=== PATIENT | male | born 1985 | race Caucasian/White ===

== ENCOUNTER 2018-07-06 10:28 | Emergency (ER) | payer OTHER ==
[2018-07-06] MEDS ORDERED: CLINDAMYCIN 600MG/D5W 600 MG/50 ML BAG IV ONE (11:17)
[2018-07-06] MEDS ORDERED: NA CHLORIDE 0.9% 1,000 ML ONE (11:17)
[2018-07-06 11:41] LABS: Absolute Lymphocytes (CBC) 0.8 K/uL (0.7-4.9); Absolute Monocytes 0.8 K/uL (0.1-1.3); Absolute Neutrophil 8.6 K/uL (1.8-8.0); Basophils % 0.2 % (0-1.3); Hematocrit 41.6 % (39.6-49.0); Lymphocytes % 7.4 % (15.3-44.8); MPV 8.3 fL (7.6-11.3); Monocytes % 7.5 % (3.3-12.3); RBC Red Blood Cell Count 4.87 M/uL (4.33-5.43)
--- NOTE | 2018-07-06 11:51 | RAD REPORT ---
EXAM DESCRIPTION: US - Extremity Venous Uni Ltd - 07/06/2018 11:45 am CLINICAL HISTORY: SWELLING Leg swelling and edema. COMPARISON: No comparisons FINDINGS: Right lower extremity venous system was interrogated with Doppler technique. Normal flow, compressibility and augmentation was noted. There is no DVT present. IMPRESSION: No evidence of right lower extremity deep venous thrombosis.
[2018-07-06 11:53] LABS: BUN Blood Urea Nitrogen 14 mg/dL (7-18); Bicarbonate 28 mmol/L (21-32); Glucose Level 112 mg/dL (74-106); Potassium 3.8 mmol/L (3.5-5.1); Sodium Level 140 mmol/L (136-145)
--- NOTE | 2018-07-06 12:33 | EDPHYS ---
Physician Documentation [facility] – [place], [place] Name: Jose Maria Agosto Age: 33 yrs Sex: Male : 1985 Arrival Date: 07/06/2018 Time: 10:30 Bed 13 Private MD: ED Physician Eric Condon HPI: 07/06 11:36 This 33 yrs old Male presents to ER via Ambulatory with complaints of Leg kb Swelling. 11:36 the patient presents with a swollen area of the right aragon and right knee. Description: kb erythematous, swollen, warm. Onset: The symptoms/episode began/occurred 4 day(s) ago. Possible cause(s): unknown. Associated signs and symptoms: Pertinent positives: erythema, swelling, Pertinent negatives: discharge, drainage, foreign body sensation, fever, headache, nausea, shortness of breath, vomiting. Modifying factors: the symptoms are alleviated by nothing, the symptoms are aggravated by touching. Severity of symptoms: At their worst the symptoms were moderate, in the emergency department the symptoms are unchanged. The patient has not experienced similar symptoms in the past. The patient has not recently seen a physician. Historical: - Allergies: 10:42 No Known Allergies; sv - PMHx: 10:42 Hypertension; sv - PSHx: 10:42 ACL, MCL, LCL repair right knee; sv - Immunization history:: Adult Immunizations up to date. - Social history:: Smoking status: Patient uses tobacco products, chewing tobacco. - Ebola Screening: : No symptoms or risks identified at this time. ROS: 11:35 Cardiovascular: Negative for chest pain, palpitations, and edema, Respiratory: Negative kb for shortness of breath, cough, wheezing, and pleuritic chest pain, Abdomen/GI: Negative for abdominal pain, nausea, vomiting, diarrhea, and constipation, Back: Negative for injury and pain, MS/Extremity: Negative for injury and deformity, Neuro: Negative for headache, weakness, numbness, tingling, and seizure. 11:35 Constitutional: Positive for fever, Negative for body aches, chills, fatigue, malaise, poor PO intake, weight loss. 11:35 Skin: Positive for erythema, swelling, of the right aragon and right knee. Exam: 11:35 Constitutional: This is a well developed, well nourished patient who is awake, alert, kb and in no acute distress. Head/Face: Normocephalic, atraumatic. ENT: Nares patent. No nasal discharge, no septal abnormalities noted. Tympanic membranes are normal and external auditory canals are clear. Oropharynx with no redness, swelling, or masses, exudates, or evidence of obstruction, uvula midline. Mucous membranes moist. Neck: Trachea midline, no thyromegaly or masses palpated, and no cervical lymphadenopathy. Supple, full range of motion without nuchal rigidity, or vertebral point tenderness. No Meningismus. Chest/axilla: Normal chest wall appearance and motion. Nontender with no deformity. No lesions are appreciated. Cardiovascular: Regular rate and rhythm with a normal S1 and S2. No gallops, murmurs, or rubs. Normal PMI, no JVD. No pulse deficits. Respiratory: Lungs have equal breath sounds bilaterally, clear to auscultation and percussion. No rales, rhonchi or wheezes noted. No increased work of breathing, no retractions or nasal flaring. Abdomen/GI: Soft, non-tender, with normal bowel sounds. No distension or tympany. No guarding or rebound. No evidence of tenderness throughout. MS/ Extremity: Pulses equal, no cyanosis. Neurovascular intact. Full, normal range of motion. Neuro: Awake and alert, GCS 15, oriented to person, place, time, and situation. Cranial nerves II-XII grossly intact. Motor strength 5/5 in all extremities. Sensory grossly intact. Cerebellar exam normal. Normal gait. 11:35 Skin: cellulitis, that is moderate, on the right knee and right aragon. Vital Signs: 10:42 BP 151 / 92; Pulse 94; Resp 18; Temp 98.5; Pulse Ox 100% ; Weight 104.33 kg; Height 5 sv ft. 11 in. (180.34 cm); Pain 7/10; 12:00 BP 137 / 89; Pulse 91; Resp 18; Pulse Ox 99% on R/A; ph 12:59 BP 143 / 81; Pulse 88; Resp 18; Temp 98.2; Pulse Ox 99% on R/A; ph 10:42 Body Mass Index 32.08 (104.33 kg, 180.34 cm) sv MDM: 10:32 Patient medically screened. kb 11:35 Data reviewed: vital signs, nurses notes. Data interpreted: Pulse oximetry: on room air kb is 100 %. Interpretation: normal. 11:36 ED course: Full ROM of knee, no joint involvement. kb 12:18 Counseling: I had a detailed discussion with the patient and/or guardian regarding: the kb historical points, exam findings, and any diagnostic results supporting the discharge/admit diagnosis, lab results, radiology results, the need for outpatient follow up, a family practitioner, to return to the emergency department if symptoms worsen or persist or if there are any questions or concerns that arise at home. 07/06 10:47 Order name: CBC with Diff; Complete Time: 11:42 kb 07/06 10:47 Order name: Basic Metabolic Panel; Complete Time: 11:54 kb 07/06 10:47 Order name: Blood Culture Adult (2) kb 07/06 10:47 Order name: Lactate; Complete Time: 11:46 kb 07/06 10:47 Order name: Procalcitonin; Complete Time: 12:32 kb 07/06 10:48 Order name: US Extremity Venous Unilateral Ltd; Complete Time: 11:54 kb 07/06 10:47 Order name: IV Start; Complete Time: 11:19 kb Administered Medications: 11:56 Drug: NS 0.9% 1000 ml Route: IV; Rate: 1000 ml; Site: right antecubital; ph 12:58 Follow up: Response: No adverse reaction; IV Status: Completed infusion ph 11:56 Drug: Clindamycin 600 mg Route: IVPB; Infused Over: 30 mins; Site: right antecubital; ph 12:30 Follow up: Response: No adverse reaction; IV Status: Completed infusion ph Disposition: 15:11 Co-signature as Attending Physician, Eric Condon MD. rn Disposition: 07/06/18 12:33 Discharged to Home. Impression: Cellulitis of right lower limb. - Condition is Stable. - Discharge Instructions: Cellulitis, Adult, [id number]. - Prescriptions for Clindamycin HCl 300 mg Oral Capsule - take 1 capsule by ORAL route every 6 hours for 10 days; 40 capsule. - Medication Reconciliation Form, Thank You Letter, Antibiotic Education, Prescription Opioid Use, Work release form form. - Follow up: Emergency Department; When: As needed; Reason: Worsening of condition. Follow up: Private Physician; When: 2 - 3 days; Reason: Recheck today's complaints, Continuance of care, Re-evaluation by your physician. Signatures: Dispatcher [employer] ED Nurys Terrell, BLUEPRINT TRIMMER-C BLUEPRINT TRIMMER-Ckb Denice Soto, RN RN Eric Thakkar MD MD rn Hall, Patricia RN RN ph Corrections: (The following items were deleted from the chart) 11:36 11:36 ED course: Full ROM of knee. kb kb 13:01 12:33 07/06/2018 12:33 Discharged to Home. Impression: Cellulitis of right lower limb. ph Condition is Stable. Discharge Instructions: Cellulitis, Adult, [id number]. Prescriptions for Clindamycin HCl 300 mg Oral Capsule - take 1 capsule by ORAL route every 6 hours for 10 days; 40 capsule. and Forms are Medication Reconciliation Form, Thank You Letter, Antibiotic Education, Prescription Opioid Use. Follow up: Emergency Department; When: As needed; Reason: Worsening of condition. Follow up: Private Physician; When: 2 - 3 days; Reason: Recheck today's complaints, Continuance of care, Re-evaluation by your physician. kb
--- NOTE | 2018-07-06 12:33 | ER ---
Nurse's Notes [facility] [place] Name: Jose Maria Agosto Age: 33 yrs Sex: Male : 1985 Arrival Date: 07/06/2018 Time: 10:30 Bed 13 Private MD: Diagnosis: Cellulitis of right lower limb Presentation: 07/06 10:40 Presenting complaint: Patient states: right knee and calf swelling x 4 days, denies sv injury. Transition of care: patient was not received from another setting of care. Onset of symptoms was July 02, 2018. Risk Assessment: Do you want to hurt yourself or someone else? Patient reports no desire to harm self or others. Initial Sepsis Screen: Does the patient meet any 2 criteria? No. Patient's initial sepsis screen is negative. Does the patient have a suspected source of infection? No. Patient's initial sepsis screen is negative. Care prior to arrival: None. 10:40 Method Of Arrival: Ambulatory sv 10:40 Acuity: EULALIO 3 sv Triage Assessment: 10:40 General: Appears in no apparent distress. uncomfortable, well developed, Behavior is sv calm, cooperative, appropriate for age. Pain: Complains of pain in right leg. Neuro: Level of Consciousness is awake, alert, obeys commands, Oriented to person, place, time, situation, Gait is steady. Respiratory: Respiratory effort is even, unlabored, Respiratory pattern is regular, symmetrical. Historical: - Allergies: 10:42 No Known Allergies; sv - PMHx: 10:42 Hypertension; sv - PSHx: 10:42 ACL, MCL, LCL repair right knee; sv - Immunization history:: Adult Immunizations up to date. - Social history:: Smoking status: Patient uses tobacco products, chewing tobacco. - Ebola Screening: : No symptoms or risks identified at this time. Screenin:38 Abuse screen: Denies threats or abuse. Denies injuries from another. Nutritional ph screening: No deficits noted. Tuberculosis screening: No symptoms or risk factors identified. Fall Risk None identified. Assessment: 10:40 General: Appears in no apparent distress. comfortable, well groomed, Behavior is calm, ph cooperative, appropriate for age, Reports fever for 1-2 days. Pain: Complains of pain in right leg. Neuro: Level of Consciousness is awake, alert, obeys commands, Oriented to person, place, time, situation. Cardiovascular: Capillary refill < 3 seconds in bilateral fingers Patient's skin is warm and dry. Respiratory: Airway is patent Respiratory effort is even, unlabored, Respiratory pattern is regular, symmetrical, Denies shortness of breath. GI: Patient currently denies diarrhea, nausea, vomiting. Derm: Skin is intact, Skin is pink, warm \T\ dry. Musculoskeletal: Circulation, motion, and sensation intact. Swelling present in right aragon and right knee. 12:59 Reassessment: Patient appears in no apparent distress at this time. Patient and/or ph family updated on plan of care and expected duration. Pain level reassessed. Patient is alert, oriented x 3, equal unlabored respirations, skin warm/dry/pink. Pt d/c home. Vital Signs: 10:42 BP 151 / 92; Pulse 94; Resp 18; Temp 98.5; Pulse Ox 100% ; Weight 104.33 kg; Height 5 sv ft. 11 in. (180.34 cm); Pain 7/10; 12:00 BP 137 / 89; Pulse 91; Resp 18; Pulse Ox 99% on R/A; ph 12:59 BP 143 / 81; Pulse 88; Resp 18; Temp 98.2; Pulse Ox 99% on R/A; ph 10:42 Body Mass Index 32.08 (104.33 kg, 180.34 cm) sv ED Course: 10:30 Patient arrived in ED. rg4 10:32 Nurys Terrell FNP-C [facility]. kb 10:32 Eric Condon MD is Attending Physician. kb 10:41 Triage completed. sv 10:43 Arm band placed on. sv 11:00 Initial lab(s) drawn, by me, sent to lab. First set of blood cultures drawn by me. ms Inserted saline lock: 20 gauge in right antecubital area, using aseptic technique. Blood collected. 11:02 Yajaira Wang, NELL is Primary Nurse. ph 11:15 Second set of blood cultures drawn. ms 11:15 Initial lab(s) drawn, by me, sent to lab. ms 11:38 Patient has correct armband on for positive identification. Placed in gown. Bed in low ph position. Call light in reach. Side rails up X 1. Pulse ox on. NIBP on. Door closed. Noise minimized. Warm blanket given. 11:45 Extremity Venous Unilateral Ltd In Process Unspecified. EDMS 13:00 No provider procedures requiring assistance completed. IV discontinued, intact, ph bleeding controlled, No redness/swelling at site. Pressure dressing applied. Administered Medications: 11:56 Drug: NS 0.9% 1000 ml Route: IV; Rate: 1000 ml; Site: right antecubital; ph 12:58 Follow up: Response: No adverse reaction; IV Status: Completed infusion ph 11:56 Drug: Clindamycin 600 mg Route: IVPB; Infused Over: 30 mins; Site: right antecubital; ph 12:30 Follow up: Response: No adverse reaction; IV Status: Completed infusion ph Outcome: 12:33 Discharge ordered by . eliezer 13:00 Discharged to home ambulatory. ph 13:00 Condition: good 13:00 Discharge instructions given to patient, Instructed on discharge instructions, follow up and referral plans. medication usage, Demonstrated understanding of instructions, follow-up care, medications, Prescriptions given X 1. 13:01 Patient left the ED. ph Signatures: Dispatcher [employer] EDTN Nurys Terrell, [place] CASH ANALYST-Denice Park, RN RN Neeru Espinal ms, Patricia, RN RN ph Garcia, Rubi rg4
== END 2018-07-06 13:01 | disposition home or self-care (01) ==
LOC: ER 10:28
DX: L03.115 Cellulitis of right lower limb (principal); I10 Essential (primary) hypertension; F17.220 Nicotine dependence, chewing tobacco, uncomplicated
CPT/HCPCS: 36415; 80048; 83605; 84145; 85025; 87040; 93971; 96365; 99284; J7030

== ENCOUNTER 2018-07-10 08:32 | Observation (INO) | payer OTHER, SELFPAY ==
[2018-07-10] MEDS ORDERED: VANCOMYCIN/NS 1 gm 1 GM/250 ML BAG IV ONE ×2 (09:00→21:00)
[2018-07-10] MEDS ORDERED: LISINOPRIL 20 MG TAB ONE (09:03)
[2018-07-10] MEDS ORDERED: PIPER/TAZO/NS 3.375gm 3.375 GM/100 ML BAG ONE (09:03)
[2018-07-10 09:21] LABS: Potassium 3.9 mmol/L (3.5-5.1)
[2018-07-10 09:25] LABS: Absolute Lymphocytes (CBC) 1.4 K/uL (0.7-4.9); Absolute Monocytes 0.6 K/uL (0.1-1.3); Absolute Neutrophil 5.9 K/uL (1.8-8.0); Basophils % 0.3 % (0-1.3); Eosinophils % 2.6 % (0-4.4); Hematocrit 42.9 % (39.6-49.0); Lymphocytes % 16.8 % (15.3-44.8); MPV 7.7 fL (7.6-11.3); Monocytes % 7.4 % (3.3-12.3); RBC Red Blood Cell Count 5.04 M/uL (4.33-5.43)
--- NOTE | 2018-07-10 09:54 | ER ---
Nurse's Notes [facility] Name: Jose Maria Agosto Age: 33 yrs Sex: Male : 1985 Arrival Date: 07/10/2018 Time: 08:34 Bed 5 Private MD: Diagnosis: Cellulitis of right lower limb-failed outpatient therapy Presentation: 07/10 08:43 Presenting complaint: Patient states: RLE swelling and redness has worsened, was seen sv here 07/06/18 and given abx. Transition of care: patient was not received from another setting of care. Onset of symptoms was July 06, 2018. Risk Assessment: Do you want to hurt yourself or someone else? Patient reports no desire to harm self or others. Initial Sepsis Screen: Does the patient meet any 2 criteria? No. Patient's initial sepsis screen is negative. Does the patient have a suspected source of infection? Yes: Skin breakdown/wound. Care prior to arrival: None. 08:43 Method Of Arrival: Ambulatory sv 08:43 Acuity: EULALIO 3 sv Triage Assessment: 08:43 General: Appears in no apparent distress. uncomfortable, well groomed, well developed, sv Behavior is calm, cooperative, appropriate for age. Pain: Complains of pain in right leg Pain currently is 5 out of 10 on a pain scale. Pain began 4 days ago Is continuous, Aggravated by increased activity, weight bearing. Neuro: Level of Consciousness is awake, alert, obeys commands, Oriented to person, place, time, situation, Moves all extremities. Full function Gait is steady, Speech is normal. Respiratory: Airway is patent Respiratory effort is even, unlabored, Respiratory pattern is regular, symmetrical. Derm: Skin is pink, warm \T\ dry. Redness noted to RLE. Musculoskeletal: Swelling present in right knee and right aragon. Historical: - Allergies: 08:45 No Known Allergies; sv - Home Meds: 08:45 lisinopril 40 mg Oral tab 1 tab once daily [Active]; sv - PMHx: 08:45 Hypertension; sv - PSHx: 08:45 ACL, MCL, LCL repair right knee; sv - Immunization history:: Adult Immunizations up to date. - Social history:: Smoking status: Patient uses tobacco products, chewing tobacco. - Ebola Screening: : No symptoms or risks identified at this time. Screenin:00 Abuse screen: Denies threats or abuse. Denies injuries from another. Nutritional sv screening: No deficits noted. Tuberculosis screening: No symptoms or risk factors identified. Fall Risk None identified. Assessment: 09:00 Reassessment: Patient appears in no apparent distress at this time. No changes from sv previously documented assessment. Patient and/or family updated on plan of care and expected duration. Pain level reassessed. Patient is alert, oriented x 3, equal unlabored respirations, skin warm/dry/pink. 10:33 Reassessment: Patient appears in no apparent distress at this time. No changes from sv previously documented assessment. Patient and/or family updated on plan of care and expected duration. Pain level reassessed. Patient is alert, oriented x 3, equal unlabored respirations, skin warm/dry/pink. 10:55 Reassessment: Patient appears in no apparent distress at this time. No changes from sv previously documented assessment. Patient and/or family updated on plan of care and expected duration. Pain level reassessed. Patient is alert, oriented x 3, equal unlabored respirations, skin warm/dry/pink. Vital Signs: 08:47 BP 155 / 96; Pulse 95; Resp 18; Temp 98.3; Pulse Ox 100% ; Weight 104.33 kg; Height 5 sv ft. 11 in. (180.34 cm); Pain 5/10; 09:40 BP 145 / 90; Pulse 98; Resp 18; Pulse Ox 100% on R/A; sv 10:32 BP 132 / 91; Pulse 93; Resp 18; Pulse Ox 97% ; sv 08:47 Body Mass Index 32.08 (104.33 kg, 180.34 cm) sv ED Course: 08:34 Patient arrived in ED. rg4 08:35 Nurys Terrell FNP-C is PHCP. kb 08:35 Soy Acuña MD is Attending Physician. kb 08:40 First set of blood cultures drawn by ED staff. sv 08:43 Denice Soto, NELL is Primary Nurse. sv 08:44 Triage completed. sv 08:45 Patient has correct armband on for positive identification. Placed in gown. Bed in low sv position. Call light in reach. Pulse ox on. NIBP on. Door closed. Head of bed elevated. 08:45 Initial lab(s) drawn, by me, sent to lab. Inserted saline lock: 20 gauge in right sg antecubital area, using aseptic technique. Blood collected. 08:47 Arm band placed on. sv 08:55 Second set of blood cultures drawn by ED staff. sv 09:01 Awaiting lab results. sv 09:53 Babak Teresa MD is Hospitalizing Provider. kb 10:55 No provider procedures requiring assistance completed. Patient admitted, IV remains in sv place. intact. Administered Medications: 08:58 Drug: Lisinopril 40 mg Route: PO; sv 09:40 Follow up: Response: No adverse reaction; Blood pressure is lowered sv 09:00 Drug: Zosyn 3.375 grams Route: IVPB; Infused Over: 60 mins; Site: right antecubital; sv 10:15 Follow up: Response: No adverse reaction; IV Status: Completed infusion; IV Intake: sv 100ml 10:31 Drug: vancoMYCIN 1 grams Route: IVPB; Infused Over: 2 hrs; Site: right antecubital; sv 11:20 Follow up: Response: No adverse reaction; IV Status: Infusion continued upon admission sv Intake: 10:15 IV: 100ml; Total: 100ml. sv Outcome: 09:53 Decision to Hospitalize by Provider. kb 10:55 Admitted to ER Hold. Please see [facility] for further documentation. sv 10:55 Condition: stable 10:55 Instructed on the need for admit. 11:20 Patient left the ED. sv Signatures: Nurys Terrell, [place] COMMUNITY DEVELOPMENT AIDE-Denice Park RN RN Neto Tatum RN RN sg Garcia, Rubi rg4
--- NOTE | 2018-07-10 09:54 | EDPHYS ---
Physician Documentation [facility] Name: Jose Maria Agosto Age: 33 yrs Sex: Male : 1985 Arrival Date: 07/10/2018 Time: 08:34 Bed 5 Private MD: ED Physician Soy Acuña HPI: 07/10 09:03 This 33 yrs old Male presents to ER via Ambulatory with complaints of Leg kb Swelling, Leg Pain. 09:03 The patient presents with cellulitis of the anterior aspect of right ankle and right kb aragon and right knee. Description: erythematous, hot, swollen. Onset: The symptoms/episode began/occurred last week. Possible cause(s): unknown. Associated signs and symptoms: Pertinent positives: erythema, swelling. Modifying factors: the symptoms are alleviated by nothing, the symptoms are aggravated by pressure. Severity of symptoms: At their worst the symptoms were moderate, in the emergency department the symptoms are unchanged. The patient has not experienced similar symptoms in the past. The patient has been recently seen at the [facility], last week, for similar complaints labs were performed, an ultrasound was performed, was given a prescription for antibiotics, told to return if symptoms worsened. Pt was seen on 07/06/18 by me for cellulitis of right lower extremity. labs and US done, put on clindamycin, and told to return for worsening symptoms. Pt reports increased redness, swelling, and pain. Denies fever. Someone was mailing his lisinopril when I saw him last, but it has yet to arrive. Will give regular dose now.. Historical: - Allergies: 08:45 No Known Allergies; sv - Home Meds: 08:45 lisinopril 40 mg Oral tab 1 tab once daily [Active]; sv - PMHx: 08:45 Hypertension; sv - PSHx: 08:45 ACL, MCL, LCL repair right knee; sv - Immunization history:: Adult Immunizations up to date. - Social history:: Smoking status: Patient uses tobacco products, chewing tobacco. - Ebola Screening: : No symptoms or risks identified at this time. ROS: 08:55 Constitutional: Negative for fever, chills, and weight loss, Cardiovascular: Negative kb for chest pain, palpitations, and edema, Respiratory: Negative for shortness of breath, cough, wheezing, and pleuritic chest pain, Abdomen/GI: Negative for abdominal pain, nausea, vomiting, diarrhea, and constipation, Back: Negative for injury and pain, MS/Extremity: Negative for injury and deformity, Neuro: Negative for headache, weakness, numbness, tingling, and seizure. 08:55 Skin: Positive for cellulitis, erythema, swelling, of the anterior aspect of right ankle and right aragon and right knee. Exam: 08:55 Constitutional: This is a well developed, well nourished patient who is awake, alert, kb and in no acute distress. Head/Face: Normocephalic, atraumatic. Chest/axilla: Normal chest wall appearance and motion. Nontender with no deformity. No lesions are appreciated. Cardiovascular: Regular rate and rhythm with a normal S1 and S2. No gallops, murmurs, or rubs. Normal PMI, no JVD. No pulse deficits. Respiratory: Lungs have equal breath sounds bilaterally, clear to auscultation and percussion. No rales, rhonchi or wheezes noted. No increased work of breathing, no retractions or nasal flaring. Abdomen/GI: Soft, non-tender, with normal bowel sounds. No distension or tympany. No guarding or rebound. No evidence of tenderness throughout. MS/ Extremity: Pulses equal, no cyanosis. Neurovascular intact. Full, normal range of motion. Neuro: Awake and alert, GCS 15, oriented to person, place, time, and situation. Cranial nerves II-XII grossly intact. Motor strength 5/5 in all extremities. Sensory grossly intact. Cerebellar exam normal. Normal gait. 08:55 Skin: cellulitis, that is moderate, on the right knee, right aragon and anterior aspect of right ankle. Vital Signs: 08:47 BP 155 / 96; Pulse 95; Resp 18; Temp 98.3; Pulse Ox 100% ; Weight 104.33 kg; Height 5 sv ft. 11 in. (180.34 cm); Pain 5/10; 09:40 BP 145 / 90; Pulse 98; Resp 18; Pulse Ox 100% on R/A; sv 10:32 BP 132 / 91; Pulse 93; Resp 18; Pulse Ox 97% ; sv 08:47 Body Mass Index 32.08 (104.33 kg, 180.34 cm) sv MDM: 08:37 Patient medically screened. kb 08:55 Data reviewed: vital signs, nurses notes. Data interpreted: Pulse oximetry: on room air kb is 100 %. Interpretation: normal. 09:51 Counseling: I had a detailed discussion with the patient and/or guardian regarding: the kb historical points, exam findings, and any diagnostic results supporting the discharge/admit diagnosis, lab results, the need for further work-up and treatment in the hospital. Physician consultation: Babak Teresa MD was contacted at 09:52, regarding admission, to the medical/surgical unit. and will see patient in ED, shortly. ED course: Pt to be admitted due to worsening symptoms and failed outpatient treatment. . 07/10 08:39 Order name: CBC with Diff; Complete Time: 09:33 kb 07/10 08:39 Order name: Basic Metabolic Panel; Complete Time: 09:33 kb 07/10 08:39 Order name: Procalcitonin; Complete Time: 09:47 kb 07/10 08:39 Order name: Lactate; Complete Time: 09:33 kb 07/10 08:39 Order name: Blood Culture Adult (2) kb 07/10 08:39 Order name: IV Start; Complete Time: 08:59 kb Administered Medications: 08:58 Drug: Lisinopril 40 mg Route: PO; sv 09:40 Follow up: Response: No adverse reaction; Blood pressure is lowered sv 09:00 Drug: Zosyn 3.375 grams Route: IVPB; Infused Over: 60 mins; Site: right antecubital; sv 10:15 Follow up: Response: No adverse reaction; IV Status: Completed infusion; IV Intake: sv 100ml 10:31 Drug: vancoMYCIN 1 grams Route: IVPB; Infused Over: 2 hrs; Site: right antecubital; sv 11:20 Follow up: Response: No adverse reaction; IV Status: Infusion continued upon admission sv Disposition: 07/11 08:13 Co-signature as Attending Physician, Soy Acuña MD I agree with the assessment and marilee plan of care. Disposition: 07/10/18 09:53 Hospitalization ordered by Babak Teresa for Inpatient Admission. Preliminary diagnosis is Cellulitis of right lower limb - failed outpatient therapy. - Bed requested for Telemetry/MedSurg (Inpatient). - Status is Inpatient Admission. sv - Condition is Stable. - Problem is an ongoing problem. - Symptoms have worsened. UTI on Admission? No Signatures: Dispatcher [employer] EDMS Nurys Terrell, DRY HOUSE OPERATOR-C DRY HOUSE OPERATOR-Ckb KaylieEricaAliciaDenice Naranjo, RN RN sv Soy Acuña MD MD cha Fitzgerald, Diane, NELL RN df Corrections: (The following items were deleted from the chart) 07/10 10:43 09:53 Hospitalization Ordered by Babak Teresa MD for Inpatient Admission. Preliminary bd diagnosis is Cellulitis of right lower limb - failed outpatient therapy. Bed requested for Telemetry/MedSurg (Inpatient). Status is Inpatient Admission. Condition is Stable. Problem is an ongoing problem. Symptoms have worsened. UTI on Admission? No. kb 10:59 10:43 07/10/2018 09:53 Hospitalization Ordered by Babak Teresa MD for Inpatient df Admission. Preliminary diagnosis is Cellulitis of right lower limb - failed outpatient therapy. Bed requested for [facility] ER HOLD. Status is Inpatient Admission. Condition is Stable. Problem is an ongoing problem. Symptoms have worsened. UTI on Admission? No. bd 11:20 10:59 07/10/2018 09:53 Hospitalization Ordered by Babak Teresa MD for Inpatient sv Admission. Preliminary diagnosis is Cellulitis of right lower limb - failed outpatient therapy. Bed requested for Telemetry/MedSurg (Inpatient). Status is Inpatient Admission. Condition is Stable. Problem is an ongoing problem. Symptoms have worsened. UTI on Admission? No. df
[2018-07-10] MEDS ORDERED: ACETAMINOPHEN 500 MG TAB PO PRN (10:48)
[2018-07-10] MEDS: TRAMADOL HCL 50 MG TAB PO PRN (17:37)
--- NOTE | 2018-07-10 18:37 | P.HP ---
Patient History Date of Service: 07/10/18 Reason for admission: Cellulitis History of Present Illness: This is a 33 yr old male with a hx of HTN admitted for right lower extremity cellulitis. Patient was seen in the ER on the 06 of july, was discharged with po clindamycin. He states that he has been taking it Q8 hrs and his redness, swelling and pain had worsened. Therefore he came to the ED. He denies any fevers, chills, cp, sob. Of note, patient states that he has had right knee surgery and does have some screws in there. He is also complaining of right knee pain. In the ED, he was HDS. His labs were unremarkable. He was given IV vancomycin and zosyn. At the time of my exam, he was AAOx3, in no acute distress and HDS. Allergies No Known Allergies Allergy (Verified 07/10/18 10:47) Home medications list reviewed: Yes Home Medications: Lisinopril 40 mg PO DAILY 07/10/18 - Past Medical/Surgical History Has patient received pneumonia vaccine in the past: No Diabetic: No -: HTN -: MCL, ACL, LCL repair on right knee - Family History Father -: Heart disease - Social History Smoking Status: Never smoker Alcohol use: Yes CD- Drugs: No Place of Residence: Home Review of Systems 10-point ROS is otherwise unremarkable Physical Examination - Vital Signs Temperature: 97.4 F Blood Pressure: 129/64 Pulse: 77 Respirations: 18 Pulse Ox (%): 98 - Physical Exam General: Alert, In no apparent distress, Oriented x3 HEENT: Atraumatic, PERRLA, Mucous membr. moist/pink, EOMI, Sclerae nonicteric Neck: Supple, 2+ carotid pulse no bruit, No LAD, Without JVD or thyroid abnormality Respiratory: Clear to auscultation bilaterally, Normal air movement Cardiovascular: Regular rate/rhythm, Normal S1 S2 Gastrointestinal: Normal bowel sounds, No tenderness Musculoskeletal: Erythema (Right knee), Tenderness (Right knee) Integumentary: Erythema, Warmth (Right Lower extremity, starting at knee, stopping right above ankle. Area demarcated. ) Neurological: Normal gait, Normal speech, Normal strength at 5/5 x4 extr, Normal tone, Normal affect Lymphatics: No axilla or inguinal lymphadenopathy - Studies Laboratory Data (last 24 hrs) 07/10/18 08:55: Triglycerides 97, Cholesterol 160, HDL Cholesterol 42, Cholesterol/HDL Ratio 3.81 07/10/18 08:55: Sodium 140, Potassium 3.9, BUN 15, Creatinine 1.06, Glucose 94 07/10/18 08:55: WBC 8.1 D, Hgb 14.2, Hct 42.9, Plt Count 300 D Assessment and Plan - Problems (Diagnosis) (1) Cellulitis Current Visit: Yes Status: Acute Plan: Start IV antibiotics, vancomycin and zosyn Demarcate area and monitor. Qualifiers: Site of cellulitis: extremity Site of cellulitis of extremity: lower extremity Laterality: right Qualified Code(s): L03.115 - Cellulitis of right lower limb (2) Hypertension Current Visit: No Status: Chronic Plan: Stable, restart home medications Qualifiers: Hypertension type: essential hypertension Qualified Code(s): I10 - Essential (primary) hypertension (3) H/O knee surgery Current Visit: Yes Status: Acute Plan: As patient is complaining of knee pain, we will go ahead and get a right knee x- ray. (4) Failure of outpatient treatment Current Visit: Yes Status: Acute - Plan DVT prophylaxis: Encourage ambulation GI prophylaxsis: None Diet: Heart healthy Admit to med/surg floor for IV antibiotics. Discharge Plan: Home - Advance Directives Does patient have a Living Will: No Does patient have a Durable POA for Healthcare: No Time Spent Managing Pts Care (In Minutes): 55
--- NOTE | 2018-07-10 19:42 | RAD REPORT ---
EXAM DESCRIPTION: RAD - Knee Right 2 View - 07/10/2018 7:35 pm CLINICAL HISTORY: Knee pain FINDINGS: Screw has been placed into tibia. Diffuse edema is present within the anterior subcutaneous tissues. No fracture or dislocation seen. No bony destructive lesion noted. There does not appear to be a large joint effusion present
[2018-07-10] MEDS ORDERED: NA CHLORIDE 0.9% 250 ML ONE (20:32)
[2018-07-10] MEDS: PIPER/TAZO/NS 3.375gm 3.375 GM/100 ML BAG IVPB SCH (20:57)
[2018-07-11] MEDS: PIPER/TAZO/NS 3.375gm 3.375 GM/100 ML BAG IVPB SCH ×3 (00:36→17:40)
[2018-07-11 06:05] LABS: Absolute Lymphocytes (CBC) 1.6 K/uL (0.7-4.9); Absolute Monocytes 0.8 K/uL (0.1-1.3); Absolute Neutrophil 5.3 K/uL (1.8-8.0); Basophils % 0.3 % (0-1.3); Eosinophils % 4.4 % (0-4.4); Hematocrit 38.2 % (39.6-49.0); Lymphocytes % 20.1 % (15.3-44.8); MPV 7.5 fL (7.6-11.3); Monocytes % 10.1 % (3.3-12.3); RBC Red Blood Cell Count 4.54 M/uL (4.33-5.43)
[2018-07-11 06:15] LABS: Magnesium 2.5 mg/dL (1.8-2.4); Phosphorus 3.4 mg/dL (2.5-4.9); Potassium 4.1 mmol/L (3.5-5.1)
[2018-07-11] MEDS: LISINOPRIL 20 MG TAB PO SCH (08:39)
[2018-07-11] MEDS: TRAMADOL HCL 50 MG TAB PO PRN (08:39)
[2018-07-11] MEDS: VANCOMYCIN 2 GM in NA CHLORIDE 0.9% 500 ML IVPB SCH ×2 (08:41→20:13)
--- NOTE | 2018-07-11 13:16 | P.PN ---
Subjective Date of Service: 07/11/18 Chief Complaint: Cellulitis Subjective: Improving Patient seen and examined at bedside. No family at bedside. Chart reviewed and case discussed with nursing staff. Reports improvement. Tolerating a diet with failure. Pain has improved. The redness slightly improved No acute events noted overnight Review of Systems 10-point ROS is otherwise unremarkable Physical Examination - Vital Signs Temperature: 99 F Blood Pressure: 124/68 Pulse: 73 Respirations: 20 Pulse Ox (%): 98 - Physical Exam General: Alert, In no apparent distress, Oriented x3 HEENT: Atraumatic, PERRLA, EOMI Neck: Supple, JVD not distended Respiratory: Clear to auscultation bilaterally, Normal air movement Cardiovascular: Regular rate/rhythm, Normal S1 S2 Gastrointestinal: Normal bowel sounds, No tenderness Musculoskeletal: No tenderness Integumentary: Tenderness/swelling, Erythema, Warmth (Improving) Neurological: Normal speech, Normal tone, Normal affect Lymphatics: No axilla or inguinal lymphadenopathy - Studies Laboratory Data (last 24 hrs) 07/10/18 08:55: Triglycerides 97, Cholesterol 160, HDL Cholesterol 42, Cholesterol/HDL Ratio 3.81 Assessment And Plan - Current Problems (Diagnosis) (1) Cellulitis Current Visit: Yes Status: Acute Plan: Continue IV antibiotics, vancomycin and zosyn Area of erythema continues to be inside demarcation. We will continue to monitor Qualifiers: Site of cellulitis: extremity Site of cellulitis of extremity: lower extremity Laterality: right Qualified Code(s): L03.115 - Cellulitis of right lower limb (2) Hypertension Current Visit: No Status: Chronic Plan: Stable, restart home medications Qualifiers: Hypertension type: essential hypertension Qualified Code(s): I10 - Essential (primary) hypertension (3) H/O knee surgery Current Visit: Yes Status: Acute Plan: Knee pain slightly improved. Knee x-ray negative for any acute abnormalities other than inflammation noted in the subcutaneous tissue. (4) Failure of outpatient treatment Current Visit: Yes Status: Acute - Plan DVT prophylaxis: Encourage ambulation GI prophylaxsis: None Diet: Heart healthy Continue to monitor on the floor, with IV antibiotics. Likely discharge home in the next 24-48 hr on oral antibiotics
[2018-07-11] MEDS ORDERED: NA CHLORIDE 0.9% 250 ML ONE (20:12)
[2018-07-12] MEDS: PIPER/TAZO/NS 3.375gm 3.375 GM/100 ML BAG IVPB SCH ×2 (00:10→08:39)
[2018-07-12 06:35] LABS: Absolute Lymphocytes (CBC) 1.3 K/uL (0.7-4.9); Absolute Monocytes 0.7 K/uL (0.1-1.3); Absolute Neutrophil 5.8 K/uL (1.8-8.0); Basophils % 0.4 % (0-1.3); Eosinophils % 4.1 % (0-4.4); Hematocrit 38.6 % (39.6-49.0); Lymphocytes % 15.8 % (15.3-44.8); MPV 7.3 fL (7.6-11.3); Monocytes % 8.7 % (3.3-12.3); RBC Red Blood Cell Count 4.59 M/uL (4.33-5.43)
[2018-07-12 06:41] LABS: BUN Blood Urea Nitrogen 9 mg/dL (7-18); Bicarbonate 28 mmol/L (21-32); Glucose Level 93 mg/dL (74-106); Potassium 4.1 mmol/L (3.5-5.1); Sodium Level 142 mmol/L (136-145)
[2018-07-12] MEDS: VANCOMYCIN 2 GM in NA CHLORIDE 0.9% 500 ML IVPB SCH (08:39)
[2018-07-12] MEDS: LISINOPRIL 20 MG TAB PO SCH (08:39)
--- NOTE | 2018-07-12 10:28 | P.SSS ---
Patient History Date of Service: 07/12/18 Primary Care Provider: In [place] Reason for admission: Cellulitis History of Present Illness: This is a 33 yr old male with a hx of HTN admitted for right lower extremity cellulitis. Patient was seen in the ER on the 06 of july, was discharged with po clindamycin. He states that he has been taking it Q8 hrs and his redness, swelling and pain had worsened. Therefore he came to the ED. He denies any fevers, chills, cp, sob. Of note, patient states that he has had right knee surgery and does have some screws in there. He is also complaining of right knee pain. In the ED, he was HDS. His labs were unremarkable. He was given IV vancomycin and zosyn. At the time of my exam, he was AAOx3, in no acute distress and HDS. Allergies No Known Allergies Allergy (Verified 07/10/18 10:47) Home Medications: Lisinopril 40 mg PO DAILY 07/10/18 Sulfamethoxazole/Trimethoprim [Bactrim Ds Tablet] 1 each PO BID #24 tablet 07/12 - Past Medical/Surgical History Has patient received pneumonia vaccine in the past: No Diabetic: No -: HTN -: MCL, ACL, LCL repair on right knee - Family History Father -: Heart disease - Social History Smoking Status: Never smoker Alcohol use: Yes CD- Drugs: No Place of Residence: Home Review of Systems 10-point ROS is otherwise unremarkable Physical Examination - Vital Signs Temperature: 97.1 F Blood Pressure: 144/77 Pulse: 80 Respirations: 20 Pulse Ox (%): 98 - Physical Exam General: Alert, In no apparent distress, Oriented x3 HEENT: Atraumatic, PERRLA, Mucous membr. moist/pink, EOMI, Sclerae nonicteric Neck: Supple, 2+ carotid pulse no bruit, No LAD, Without JVD or thyroid abnormality Respiratory: Clear to auscultation bilaterally, Normal air movement Cardiovascular: Regular rate/rhythm, Normal S1 S2 Gastrointestinal: Normal bowel sounds, No tenderness Musculoskeletal: Tenderness (Right knee, improved) Integumentary: Tenderness/swelling (Right knee, improved), Erythema (Right knee , improved) Neurological: Normal gait, Normal speech, Normal strength at 5/5 x4 extr, Normal tone, Normal affect Lymphatics: No axilla or inguinal lymphadenopathy - Diagnosis (Problem(s)) (1) Cellulitis Current Visit: Yes Status: Acute Qualifiers: Site of cellulitis: extremity Site of cellulitis of extremity: lower extremity Laterality: right Qualified Code(s): L03.115 - Cellulitis of right lower limb (2) Hypertension Current Visit: No Status: Chronic Qualifiers: Hypertension type: essential hypertension Qualified Code(s): I10 - Essential (primary) hypertension (3) H/O knee surgery Current Visit: Yes Status: Chronic (4) Failure of outpatient treatment Current Visit: Yes Status: Acute Treatment Summary: Patient was admitted for lower extremity cellulitis. He was started on IV antibiotics with vancomycin and Zosyn. The area cellulitis was demarcated. The area of erythema improved, remained inside the demarcation line. He has a history of knee surgery, with some swelling and redness noted. Knee x-ray was done, was negative for any acute abnormalities other than inflammation noted in the subcutaneous tissue. His labs remained stable. He remained otherwise hemodynamically stable throughout the stay. He was converted to oral Bactrim prior to discharge. He will take Bactrim to complete a 14 day course. Prior to discharge, he was alert oriented x3, in no acute distress, ambulating without any concerns. His area of cellulitis had improved. He was instructed to follow up with is primary care physician in 1 week. His diagnoses/treatment plan were explained to him. All questions were answered and patient verbalized understanding. He was then discharged home in a safe and stable manner. - Disposition Discharge Date: 07/12/18 Disposition: ROUTINE DISCHARGE Condition: GOOD Patient Discharge Instructions: Please follow up with the primary care physician in 1 week. New medications: Bactrim, an antibiotic for your infection. Please return to the emergency room for worsening symptoms. Diet: Regular Activity: Ad dave Time Spent Managing Pts Care (In Minutes): 45
== END 2018-07-12 12:29 | disposition home or self-care (01) ==
LOC: ER 08:32 → ERHOLD 09:54 → 2ND 11:15
PROVIDERS: ADMIT Family Medicine; ATTEND Family Medicine
DX: L03.115 Cellulitis of right lower limb (principal); I10 Essential (primary) hypertension
CPT/HCPCS: 36415; 80048; 80061; 80202; 83036; 83605; 83735; 84100; 84145; 85025; 87040; 94760; 96365; 96367; 99285; G0378; J2543; J3370